=== PATIENT | female | born 1955 | race Caucasian/White ===

== ENCOUNTER 2018-10-28 14:45 | Outpatient (REF) | payer BC, SELFPAY ==
[2018-10-28 21:16] LABS: ALT 56 U/L (12-78); Anion Gap 10.2 mmol/L (3-11); BUN 20 mg/dL (7-18); CO2 26.8 mmol/L (21.0-32.0); CREATININE 0.92 mg/dL (0.55-1.02); Calcium 9.9 mg/dL (8.5-10.1); Chloride 105 mmol/L (98-107); Cholesterol 148 mg/dL (50-200); Glucose 105 mg/dL (70-100); HDL Cholesterol 40 mg/dL (40-60); LDL CHOLESTEROL 97 mg/dL (<100); Potassium 4.5 mmol/L (3.5-5.1); Sodium 142 mmol/L (136-145); TSH (W/Ref FT4) 1.32 uIU/mL (0.358-3.74); Triglyceride 80 mg/dL (30-150)
== END 2018-10-28 15:05 ==
LOC: NCHCN 14:45
PROVIDERS: Visit Provider Family Medicine
DX: E66.01 Morbid (severe) obesity due to excess calories (principal); E03.9 Hypothyroidism, unspecified
CPT/HCPCS: 80048; 80061; 83721; 84443; 84460

== ENCOUNTER 2019-01-18 11:00 | Outpatient (REF) | payer BC, SELFPAY ==
--- NOTE | 2019-01-18 09:00 | PAPFT_PTH ---
PATIENT: Jessie Martinez LOC: [facility] U#:[id number] AGE/SX: 63/F ROOM: RE01/18/[address]: Lauren Crum : 1955 BED: DIS: 01/18/2019 SPEC #: [id number] RECD: 01/19/19 12:55 STATUS: MODE[place] REJhonathan #: [id number] SHIRLEY: 01/18/19 09:[address]: Lauren Crum DEPT: [facility] Cytology RECD BY: Sandy Uribe ENTERED: 01/19/19 12:55 SP TYPE: PAPFT OTHR DR: Bert Moore Tissues: 1 - CX/ENDOCX FOR PAP SMEARS Procedures: PAP THIN PREP/[facility] Screening HPV DNA PROBE Comments: [id number]
== END 2019-01-18 11:20 ==
LOC: NCHCN 11:00
PROVIDERS: Visit Provider Family Medicine
DX: Z00.00 Encounter for general adult medical examination without abnormal findings (principal); Z12.4 Encounter for screening for malignant neoplasm of cervix; Z11.51 Encounter for screening for human papillomavirus (HPV)
CPT/HCPCS: 88142; 87624

== ENCOUNTER 2020-01-31 07:55 | Outpatient (REF) | payer BC, SELFPAY ==
[2020-01-31 20:41] LABS: ALT 55 U/L (14-59); AST 34 U/L (15-37); Albumin 3.9 g/dL (3.4-5.0); Alkaline Phosphatase 59 U/L (46-116); Anion Gap 9.2 mmol/L (3-11); BUN 20 mg/dL (7-18); Bilirubin, Total 0.7 mg/dL (0.2-1.0); CO2 27.8 mmol/L (21.0-32.0); Calcium 9.3 mg/dL (8.5-10.1); Calculated LDL 83 mg/dL (<100); Chloride 104 mmol/L (98-107); Cholesterol 138 mg/dL (<200); Estimated GFR 55.64 (mL/min/1.73m2); Glucose 112 mg/dL (74-106); HDL Cholesterol 39 mg/dL (40-60); Potassium 4.1 mmol/L (3.5-5.1); Sodium 141 mmol/L (136-145); TSH (W/Ref FT4) 2.43 uIU/mL (0.36-3.74); Total Protein 7.2 g/dL (6.4-8.2); Triglyceride 83 mg/dL (<150)
== END 2020-01-31 08:15 ==
LOC: NCHCN 07:55
PROVIDERS: PCP Family Medicine; Visit Provider Family Medicine
DX: I10 Essential (primary) hypertension (principal); E03.9 Hypothyroidism, unspecified; E78.5 Hyperlipidemia, unspecified
CPT/HCPCS: 80053; 80061; 84443

== ENCOUNTER 2021-01-29 10:55 | Outpatient (REF) | payer BC, SELFPAY ==
--- NOTE | 2021-01-29 10:15 | ENDOMET_PTH ---
PATIENT: Jessie Martinez LOC: [facility] U#:[id number] AGE/SX: 65/F ROOM: RE01/29/[address]: Lauren Crum : 1955 BED: DIS: 01/29/2021 SPEC #: [id number] RECD: 01/29/21 12:48 STATUS: MODEST[place] REJhonathan #: [id number] SHIRLEY: 01/29/21 10:[address]: Lauren Crum DEPT: Surgical Specimen RECD BY: Sandy Uribe Tissues: 1 - ENDOMETRIUM BX/MONA Procedures: GROSS AND MICRO LEVEL 4 Comments: [id number]
== END 2021-01-29 10:56 | disposition home or self-care (01) ==
LOC: NCHCN 10:55
PROVIDERS: PCP Family Medicine; Visit Provider Family Medicine
DX: N85.8 Other specified noninflammatory disorders of uterus (principal); N95.0 Postmenopausal bleeding
CPT/HCPCS: 88305

== ENCOUNTER 2021-03-12 15:29 | Outpatient (REF) | payer BC, SELFPAY ==
[2021-03-12 20:45] LABS: COMMENT (LAB VIEW ONLY) 152.96 mg/dL; Microalb ug/mg Crea 14.1 ug/mg Cr
== END 2021-03-12 15:30 | disposition home or self-care (01) ==
LOC: NCHCN 15:29
PROVIDERS: PCP Family Medicine; Visit Provider Family Medicine
DX: E11.9 Type 2 diabetes mellitus without complications (principal)
CPT/HCPCS: 82043; 82570

== ENCOUNTER 2021-07-22 16:28 | Outpatient (REF) | payer BC, SELFPAY ==
[2021-07-22 22:12] LABS: TSH 1.55 uIU/mL (0.36-3.74)
== END 2021-07-22 16:29 | disposition home or self-care (01) ==
LOC: NCHCN 16:28
PROVIDERS: PCP Family Medicine; Visit Provider Family Medicine
DX: E03.9 Hypothyroidism, unspecified (principal)
CPT/HCPCS: 84443

== ENCOUNTER 2022-03-11 18:28 | Outpatient (REF) | payer BC, SELFPAY | END 2022-03-11 18:29 | disposition home or self-care (01) | LOC: NCHCN 18:28 | PROVIDERS: PCP Family Medicine; Visit Provider Nurse Practitioner Family | DX: R30.0 Dysuria (principal) | CPT/HCPCS: 87077; 87086; 87186 ==

== ENCOUNTER 2022-06-11 12:32 | Outpatient (REF) | payer MEDICARE, SELFPAY ==
[2022-06-11 22:01] LABS: Hemoglobin A1C 6.3 % (<5.7)
[2022-06-11 22:06] LABS: Anion Gap 10.1 mmol/L (3-11); BUN 23 mg/dL (7-18); CO2 25.9 mmol/L (21.0-32.0); CREATININE 0.8 mg/dL (0.55-1.02); Calcium 9.1 mg/dL (8.5-10.1); Calculated LDL 82 mg/dL (<100); Chloride 107 mmol/L (98-107); Cholesterol 137 mg/dL (<200); Glucose 109 mg/dL (74-106); HDL Cholesterol 39 mg/dL (40-60); Potassium 4.2 mmol/L (3.5-5.1); Sodium 143 mmol/L (136-145); TSH 0.86 uIU/mL (0.36-3.74); Triglyceride 84 mg/dL (<150)
[2022-06-12 17:49] LABS: Albumin ug/mg Crea 27 (<30); Albumin, Ur 2.8 mg/dL (See Note); Creatinine, Ur 103.1 mg/dL (See Note)
== END 2022-06-11 12:33 | disposition home or self-care (01) ==
LOC: NCHCN 12:32
PROVIDERS: PCP Family Medicine; Visit Provider Family Medicine
DX: E03.9 Hypothyroidism, unspecified (principal); E11.9 Type 2 diabetes mellitus without complications; I10 Essential (primary) hypertension; E78.5 Hyperlipidemia, unspecified
CPT/HCPCS: 80048; 80061; 82043; 82570; 83036; 84443

== ENCOUNTER 2022-08-11 16:43 | Outpatient (REF) | payer MEDICARE, SELFPAY ==
[2022-08-11 20:55] LABS: C-Reactive Protein 0.11 mg/dL (0.0-0.3)
[2022-08-11 20:59] LABS: Abs Immature Grans 0.01 10^3/uL (0.0-0.06); Absolute Basophil Count 0.07 10^3/uL (0.0-0.2); Absolute Monocyte Count 0.57 10^3/uL (0.1-0.8); Absolute Neutrophil Count 3.68 10^3/uL (1.2-6.7); Basophils % 1.1; Eosinophils % 1.5; HCT 43.1 % (36.0-46.0); HGB 14.7 g/dL (11.2-15.7); Immature Grans % 0.2; Lymphocytes % 33.2; MCH 29.5 pg (27.0-33.0); MCHC 34.1 % (32.0-36.0); MCV 87 fL (80-95); MPV 11.5 fL (8.0-11.0); Monocytes % 8.6; Neutrophils % 55.4; Platelet Count 196 10^3/uL (130-400); RBC 4.98 10^6/uL (3.93-5.22); RDW 13.1 % (11.7-14.6); RDW-SD 41.1 fL; WBC 6.63 10^3/uL (4.4-10.8)
[2022-08-11 21:19] LABS: ESR 24 mm/hr (0-30)
== END 2022-08-11 16:44 | disposition home or self-care (01) ==
LOC: NCHCN 16:43
PROVIDERS: PCP Family Medicine; Visit Provider Family Medicine
DX: R20.2 Paresthesia of skin (principal)
CPT/HCPCS: 85652; 85025; 86140

== ENCOUNTER 2022-10-06 13:53 | Outpatient (REF) | payer MEDICARE, SELFPAY | END 2022-10-06 13:54 | disposition home or self-care (01) | LOC: NCHCN 13:53 | PROVIDERS: PCP Family Medicine; Visit Provider Nurse Practitioner Family | DX: R39.89 Other symptoms and signs involving the genitourinary system (principal) | CPT/HCPCS: 87077; 87086; 87186 ==

== ENCOUNTER 2022-11-14 11:38 | Outpatient (REF) | payer MEDICARE, SELFPAY ==
[2022-11-14 14:00] LABS: HCT 40.9 % (36.0-46.0); HGB 13.7 g/dL (11.2-15.7); MCH 29.4 pg (27.0-33.0); MCHC 33.5 % (32.0-36.0); MCV 88 fL (80-95); MPV 11.2 fL (8.0-11.0); Platelet Count 195 10^3/uL (130-400); RBC 4.66 10^6/uL (3.93-5.22); RDW 13.6 % (11.7-14.6); RDW-SD 43.6 fL; WBC 6.03 10^3/uL (4.4-10.8)
[2022-11-14 14:29] LABS: Anion Gap 7.3 mmol/L (3-11); BUN 18 mg/dL (7-18); CO2 27.7 mmol/L (21.0-32.0); CREATININE 0.8 mg/dL (0.55-1.02); Calcium 9.9 mg/dL (8.5-10.1); Chloride 105 mmol/L (98-107); Estimated GFR 80.21 (mL/min/1.73m2); Glucose 96 mg/dL (74-106); Potassium 4.2 mmol/L (3.5-5.1); Sodium 140 mmol/L (136-145)
[2022-11-14 14:49] LABS: Hemoglobin A1C 5.7 % (<5.7)
[2022-11-14 15:07] LABS: Vitamin D 25 Total 41.1 ng/mL (30-100)
== END 2022-11-14 11:39 | disposition home or self-care (01) ==
LOC: NCHCN 11:38
PROVIDERS: PCP Family Medicine; Visit Provider Family Medicine
DX: E11.9 Type 2 diabetes mellitus without complications (principal); Z01.818 Encounter for other preprocedural examination; E66.01 Morbid (severe) obesity due to excess calories; Z11.59 Encounter for screening for other viral diseases
CPT/HCPCS: 80048; 82306; 85027; 87081; 83036

== ENCOUNTER 2022-11-24 12:06 | Outpatient (REF) | payer MEDICARE, SELFPAY | END 2022-11-24 12:07 | disposition home or self-care (01) | LOC: NCHCN 12:06 | PROVIDERS: PCP Family Medicine; Visit Provider Internal Medicine | DX: N39.0 Urinary tract infection, site not specified (principal) | CPT/HCPCS: 87086 ==

== ENCOUNTER 2023-06-05 10:50 | Outpatient (REF) | payer MEDICARE, SELFPAY ==
[2023-06-05 14:55] LABS: TSH 1.11 uIU/mL (0.36-3.74)
[2023-06-05 15:02] LABS: COMMENT (LAB VIEW ONLY) 86.03 mg/dL; Microalb ug/mg Crea 11.2 ug/mg Cr
== END 2023-06-05 10:51 | disposition home or self-care (01) ==
LOC: NCHCN 10:50
PROVIDERS: PCP Family Medicine; Visit Provider Family Medicine
DX: E03.9 Hypothyroidism, unspecified (principal); E11.9 Type 2 diabetes mellitus without complications
CPT/HCPCS: 82043; 82570; 84443

== ENCOUNTER 2023-11-20 11:34 | Outpatient (REF) | payer MEDICARE, SELFPAY ==
[2023-11-20 15:16] LABS: Hemoglobin A1C 5.8 % (<5.7)
[2023-11-20 15:23] LABS: Anion Gap 8.3 mmol/L (3-11); BUN 22 mg/dL (7-18); CO2 27.7 mmol/L (21.0-32.0); CREATININE 0.8 mg/dL (0.55-1.02); Calcium 9.3 mg/dL (8.5-10.1); Calculated LDL 87 mg/dL (<100); Chloride 107 mmol/L (98-107); Cholesterol 146 mg/dL (<200); Estimated GFR 79.71 (mL/min/1.73m2); Glucose 94 mg/dL (74-106); HDL Cholesterol 47 mg/dL (40-60); Sodium 143 mmol/L (136-145); TSH 1.68 uIU/mL (0.36-3.74); Triglyceride 64 mg/dL (<150)
== END 2023-11-20 11:35 | disposition home or self-care (01) ==
LOC: NCHCN 11:34
PROVIDERS: PCP Family Medicine; Visit Provider Family Medicine
DX: E78.5 Hyperlipidemia, unspecified (principal); E11.9 Type 2 diabetes mellitus without complications; I10 Essential (primary) hypertension
CPT/HCPCS: 80048; 80061; 83036; 84443

== ENCOUNTER 2024-02-10 18:06 | Outpatient (REF) | payer MEDICARE, SELFPAY ==
--- NOTE | 2024-02-10 15:30 | ENDOMET_PTH ---
PATIENT: Jessie Martinez LOC: [facility] U#:[id number] AGE/SX: 69/F ROOM: RE02/10/[address]: Lauren Crum : 1955 BED: DIS: 02/10/2024 SPEC #: [id number] RECD: 02/11/24 12:33 STATUS: MODESTO REQ #: [id number] SHIRLEY: 02/10/24 15:[address]: Lauren Crum DEPT: Surgical Specimen RECD BY: Sandy Uribe Tissues: 1 - ENDOMETRIUM BX/MONA Procedures: GROSS AND MICRO LEVEL 4 Comments: [id number]
== END 2024-02-10 18:07 | disposition home or self-care (01) ==
LOC: NCHCN 18:06
PROVIDERS: PCP Family Medicine; Visit Provider Family Medicine
DX: N84.0 Polyp of corpus uteri (principal); N88.8 Other specified noninflammatory disorders of cervix uteri; N95.0 Postmenopausal bleeding
CPT/HCPCS: 88305

== ENCOUNTER 2024-06-20 18:12 | Outpatient (REF) | payer MEDICARE, SELFPAY ==
[2024-06-20 22:18] LABS: COMMENT (LAB VIEW ONLY) 217.14 mg/dL; Microalb ug/mg Crea 7.5 ug/mg Cr
== END 2024-06-20 18:13 | disposition home or self-care (01) ==
LOC: NCHCN 18:12
PROVIDERS: PCP Family Medicine; Visit Provider Family Medicine
DX: E11.9 Type 2 diabetes mellitus without complications (principal)
CPT/HCPCS: 82043; 82570

== ENCOUNTER 2024-12-22 15:21 | Outpatient (REF) | payer MEDICARE, SELFPAY ==
[2024-12-22 21:42] LABS: ALT 30 U/L (14-59); AST 24 U/L (15-37); Alkaline Phosphatase 77 U/L (46-116); Anion Gap 6.9 mmol/L (3-11); BUN 19 mg/dL (7-18); Bilirubin, Total 0.48 mg/dL (0.2-1.0); CO2 28.1 mmol/L (21.0-32.0); CREATININE 0.9 mg/dL (0.55-1.02); Calcium 9.5 mg/dL (8.5-10.1); Calculated LDL 75 mg/dL (<100); Chloride 108 mmol/L (98-107); Cholesterol 146 mg/dL (<200); Estimated GFR 68.77 (mL/min/1.73m2); Glucose 96 mg/dL (74-106); HDL Cholesterol 44 mg/dL (>or=50); Potassium 4.5 mmol/L (3.5-5.1); Sodium 143 mmol/L (136-145); TSH 2.64 uIU/mL (0.36-3.74); Total Protein 7.5 g/dL (6.4-8.2); Triglyceride 137 mg/dL (<150)
== END 2024-12-22 15:22 | disposition home or self-care (01) ==
LOC: NCHCN 15:21
PROVIDERS: PCP Family Medicine; Visit Provider Family Medicine
DX: E66.01 Morbid (severe) obesity due to excess calories (principal); E03.9 Hypothyroidism, unspecified; E78.5 Hyperlipidemia, unspecified
CPT/HCPCS: 80053; 80061; 84443

== ENCOUNTER 2025-07-03 16:26 | Outpatient (REF) | payer MEDICARE, SELFPAY ==
[2025-07-03 17:21] LABS: COMMENT (LAB VIEW ONLY) 42.07 mg/dL; Microalb ug/mg Crea 10.9 ug/mg Cr
== END 2025-07-03 16:27 | disposition home or self-care (01) ==
LOC: NCHCN 16:26
PROVIDERS: PCP Family Medicine; Visit Provider Family Medicine
DX: E11.9 Type 2 diabetes mellitus without complications (principal)
CPT/HCPCS: 82043; 82570